=== PATIENT | female | born 1945 | race Caucasian/White ===

== ENCOUNTER 2017-04-15 12:03 | Inpatient (IN) | payer OTHER ==
[~2017-04-15] VITALS: Ht 154.9 cm; Wt 88.0 kg
--- NOTE | ~2017-04-15 | D ---
[facility] [place] [address] DISCHARGE SUMMARY Name: TAMARA MULTANI Room #: 409-P [facility] IN M.R.#: [id number] Admission: 04/29/17 Attend Phys: Emeterio Romero MD Discharge: 05/01/17 Date of : 49 Report #: [id number] THIS REPORT FOR: //name// CC: Emeterio Suarez DATE OF SERVICE: 05/01/2017 FINAL DIAGNOSES: End-stage degenerative arthritis, right knee. OPERATION PROCEDURES: Right total knee arthroplasty. HISTORY: This 71-year-old female has progressive bilateral knee arthritis and a previous left total knee replacement, which went nicely. Now, she is returned for right total knee replacement. HOSPITAL COURSE: The patient was admitted and taken to the operating room on 04/29/2017. She underwent right total knee arthroplasty, which she tolerated quite nicely. Postoperatively, she made very rapid progress and advanced from IV analgesics to oral analgesics and resumed a regular diet. She started physical therapy and quickly advanced to independent ambulation. The wound appears clean and dry and there is minimal drainage. She seems safe and independent and is anxious for hospital discharge. DISCHARGE MEDICATIONS: Include Xarelto 10 mg daily, Pravachol 40 mg daily, hydrocodone 10 mg q.4-6h. p.r.n. for pain, Colace 100 mg daily. DISCHARGE INSTRUCTIONS: She will begin outpatient therapy this week or early next week and continue with independent exercise program. She will call for any problems or questions. I will plan to see her back in the office in 1-2 weeks for followup and suture removal. <ELECTRONICALLY SIGNED> By: Emeterio Romero MD 05/13/17 0948 [id number] Emeterio Romero MD /nt
--- NOTE | ~2017-04-15 | O ---
[facility] [place] [address] OPERATIVE REPORT Name: TAMARA MULTANI Room #: 409-P ADM IN M.R.#: [id number] Admission: 04/29/17 Attend Phys: Emeterio Romero MD Discharge: Date of : 49 Report #: [id number] THIS REPORT FOR: //name// CC: Emeterio Suarez DATE OF SERVICE: 04/29/2017 PREOPERATIVE DIAGNOSIS: End-stage degenerative arthritis, right knee with flexion contracture and varus malalignment. POSTOPERATIVE DIAGNOSIS: End-stage degenerative arthritis, right knee with flexion contracture and varus malalignment. PROCEDURE: Right total knee arthroplasty. SURGEON: Emeterio Romero MD INDICATIONS: This heavy and mildly deconditioned 71-year-old female has progressive degenerative arthritis involving both knees. She underwent left total knee replacement in the past with good result. She now has progressive varus malalignment of the right knee with moderate flexion contracture and rather significant discomfort and intermittent swelling. She has elected to go ahead with right total knee arthroplasty at this time. DESCRIPTION OF PROCEDURE: The patient was taken to the operating room where she was placed under general anesthesia. Prophylactic intravenous antibiotics were administered. The right knee and leg were meticulously prepped and draped and a thigh tourniquet inflated to 300 mmHg. An anterior longitudinal skin incision was made and carried to the medial retinaculum. The patella was reflected laterally. Marked degenerative change in all 3 compartments was noted. The [employer]hew Megan knee system was utilized. Intramedullary guides were used on both the femur and the tibia. The femur was cut in 5 degrees of valgus and the tibia cut perpendicular to long axis of the bone. Sufficient bone was resected to correct the flexion contracture and correct the varus malalignment. The femur seemed best suited for a size 4 right femoral component and the tibia was best suited for size 3 tibial component. The patellar surface was resected and a 32 mm patellar button seemed to fit nicely. A trial reduction was performed with these trial components in place and a 9 mm polyethylene insert was trialed and seemed to fit nicely. This resulted in satisfactory alignment, range of motion and stability. The trial components were removed. The surfaces were thoroughly irrigated and dried. The intramedullary canal was blocked with bone block on both the femoral and tibial sides. Methyl methacrylate cement was mixed and injected into the porous surface of the tibia. The permanent components were brought up onto the field. The Song [employer] Nephew size 3 right Megan II tibial component was impacted into position. It seated nicely and [address] [address] OPERATIVE REPORT Name: TAMARA MULTANI Room #: 409-P [facility] IN M.R.#: [id number] Admission: 04/29/17 Attend Phys: Emeterio Romero MD Discharge: Date of : 49 Report #: [id number] appeared to be stable. A 9 mm polyethylene insert using the Legion cruciate retaining polyethylene material was utilized. This was inserted appropriately and snapped into position. It seated nicely and appeared to be secure. A right Song [employer] Nephew size 4 Legion porous femoral component was impacted on the distal femur. It seated nicely and appeared to be secure. A 32 mm patellar button was inserted with appropriate anchor holes and secured with methyl methacrylate and a patellar clamp until the cement had cured. All excess cement was removed from around its margin. Once the components were stable, alignment, range of motion and stability were once again assessed and felt to be satisfactory. The knee fully extended and flexion was beyond 130 degrees. The patella seemed to track nicely and appeared to be stable. There was good correction in the preoperative varus malalignment. A single Hemovac was left in the wound exiting through a separate stab incision. At this point, the tourniquet was deflated after a total tourniquet time of 58 minutes. Good hemostasis was established. The fascia was then closed with multiple #1 Vicryl sutures. The subcutaneous tissues were closed with 0 Monocryl. The skin was closed with skin maryjo. A sterile dressing was applied. The patient was awakened and returned to recovery room in good condition. <ELECTRONICALLY SIGNED> By: Emeterio Romero MD 04/30/17 0805 [id number] [id number] Emeterio Romero MD /nt
[~2017-04-15 12:03] MED LIST: ACYCLOVIR 400400 MG PO; APAP650 PO; COLACE 100 MG100 MG PO; COUMADIN 2 MG TA2 M1 PO; COUMADIN 5 MG TA5 M1 PO; DETROL LA4 MG PO; DICLOFENAC SODI75 M1 PO; DICLOFENAC SODI75 MG PO; FISH OIL 1,0001 EAC5 PO; FISH OIL 1,001000 M2 PO; HYDROCHLOROTHIA25 M1 PO; HYDROCODON-ACE1 EAC5 PO; HYDROCODON-ACE1 EACH PO; LIPITOR10 MG PO; OSTEO BI-FLEX1 EAC1 PO; OSTEO BI-FLEX1 EACH PO; OXYBUTYNIN 5 MG5 M1 PO; PRAVACHOL40 MG PO; PROTEIN POWDER480 GM PO; TRILIPIX135 MG PO
[2017-04-17 12:26] LABS: URINE BILIRUBIN NEGATIVE (Negative); URINE BLOOD NEGATIVE (Negative); URINE CLARITY CLEAR; URINE COLOR YELLOW; URINE GLUCOSE-RANDOM* NEGATIVE (Negative); URINE KETONES NEGATIVE (Negative); URINE NITRITE-REFLEX NEGATIVE (Negative); URINE PROTEIN (DIPSTICK) NEGATIVE (Negative); URINE UROBILINOGEN 0.2 E.U./dl (0.2-1.0)
[2017-04-17 12:27] LABS: HEMOGLOBIN 13.9 gm/dL (12.0-15.0); MCH 31.6 pg (26.0-34.0); MCHC 33.8 g/dL (28.0-37.0); MCV 93.3 fL (80.0-100.0); RBC 4.39 mil/uL (4.20-5.00); RDW 13.8 % (10.5-14.5); URINE LEUKOCYTES-REFLEX TRACE (Negative); WBC 7.4 thou/uL (4.0-11.0)
[2017-04-17 12:37] LABS: ALBUMIN 3.8 g/dL (3.4-5.0); CALCIUM 9.5 mg/dL (8.5-10.1); CREATININE 0.6 mg/dL (0.6-1.0); POTASSIUM 4.2 mmol/L (3.5-5.1)
[2017-04-29] VITALS (10 sets, daily range): BP systolic 94–127; BP diastolic 45–80
[2017-04-30 05:09] VITALS: BP 103/44
[2017-04-30 05:19] LABS: HEMATOCRIT 29.5 % (37.0-47.0); MCH 31.9 pg (26.0-34.0); MCV 93.8 fL (80.0-100.0); RBC 3.14 mil/uL (4.20-5.00); RDW 13.5 % (10.5-14.5); WBC 11.2 thou/uL (4.0-11.0)
[2017-04-30 09:53] VITALS: BP 113/56
[2017-04-30 17:21] VITALS: BP 133/60
[2017-04-30 19:52] VITALS: BP 108/43
[2017-05-01 04:00] VITALS: BP 106/47
[2017-05-01 05:55] LABS: HEMATOCRIT 27.8 % (37.0-47.0); HEMOGLOBIN 9.4 gm/dL (12.0-15.0); MCHC 33.8 g/dL (28.0-37.0); MCV 94.6 fL (80.0-100.0); RBC 2.94 mil/uL (4.20-5.00); RDW 13.9 % (10.5-14.5); WBC 9.2 thou/uL (4.0-11.0)
[2017-05-01 07:37] VITALS: BP 109/53
[2017-05-01 10:20] VITALS: BP 109/53
[2017-05-01 12:00] VITALS: BP 109/53
[2017-05-01 15:39] VITALS: BP 108/51
[2017-05-01] MEDS ORDERED: XARELTO10 MG PO (16:17)
== END 2017-05-01 19:09 | disposition home or self-care (01) | DRG 470 ==
LOC: PRE 12:03 → TBA 04-29 05:30 → 4N 04-29 05:30 → PRE 04-29 05:55 → 4N 04-29 10:23 → PRE 04-29 11:51 → ENTRNSPT 05-01 18:21 → 4N 05-01 19:09
PROVIDERS: Orthopaedic Surgery
PROC: 0SRC0J9 Replacement of Right Knee Joint with Synthetic Substitute, Cemented, Open Approach (ICD-10-PCS; principal; 2017-04-29)
DX: M17.11 Unilateral primary osteoarthritis, right knee (principal); M24.561 Contracture, right knee; M21.161 Varus deformity, not elsewhere classified, right knee; Z96.652 Presence of left artificial knee joint; F32.9 Major depressive disorder, single episode, unspecified; R32 Unspecified urinary incontinence; E78.00 Pure hypercholesterolemia, unspecified; Z79.899 Other long term (current) drug therapy
CPT/HCPCS: 10790; 50010; 50101; 50415; 50954; 51130; 51225; 51412; 51771; 53364; 56525; 62110; 62900; 65060; 70005